=== PATIENT | female | born 1985 | race Caucasian/White ===

== ENCOUNTER 2022-08-17 23:05 | Emergency (ER) | payer MEDICAID ==
[~2022-08-17] VITALS: Ht 172.7 cm; Wt 85.3 kg
[2022-08-17 23:42] VITALS: BP_SYST 117
--- NOTE | 2022-08-17 23:45 | NUR ---
Patient triaged and placed in waiting room. VSS and patient appears in no acute distress at this time. Accompanied by FAMILY, awaiting available bed, and MD notified of need for MSE.
--- NOTE | 2022-08-18 00:06 | NUR ---
ER at examining patient in triage room.
[2022-08-18 02:30] VITALS: BP_SYST 119
--- NOTE | 2022-08-18 02:31 | NUR ---
Patient given written and verbal discharge instructions and verbalizes understanding. ER MD discussed with patient the results and treatment provided. Patient in stable condition. Patient educated on pain management and to follow up with PMD. Pain Scale [0]. Opportunity for questions provided and answered. Medication side effect fact sheet provided.
== END 2022-08-18 02:30 | disposition home or self-care (01) ==
LOC: SED 23:05
DX: J06.9 Acute upper respiratory infection, unspecified (principal); B34.9 Viral infection, unspecified; R05.9 Cough, unspecified; R51.9 Headache, unspecified; M79.10 Myalgia, unspecified site; Z79.899 Other long term (current) drug therapy; Z20.822 Contact with and (suspected) exposure to COVID-19
CPT/HCPCS: 36415; 99283